=== PATIENT | male | born 1955 | race Two or more races ===

== ENCOUNTER → 2022-06-25 | Day surgery (SDC) | payer OTHER | END | disposition home or self-care (01) | LOC: ADM 06-21 14:00 → AMB-ENDOS 05:55 | PROVIDERS: ATTEND Surgery | DX: D12.5 Benign neoplasm of sigmoid colon (principal); K57.30 Diverticulosis of large intestine without perforation or abscess without bleeding; E78.5 Hyperlipidemia, unspecified; I10 Essential (primary) hypertension; Z86.010 Personal history of colon polyps; Z20.822 Contact with and (suspected) exposure to COVID-19 ==